=== PATIENT | female | born 1970 | race Caucasian/White ===

== ENCOUNTER 2016-12-08 08:01 | Emergency (ER) | payer SELFPAY ==
[2016-12-08 08:10] VITALS: BMI 35.2
--- NOTE | 2016-12-08 08:28 | EDPRACDOC ---
- General Information Chief Complaint: Flu-Like Symptoms Stated Complaint: CHEST PAIN/CONGESTION Information Source: Patient Home Medications: Home Medications Azithromycin 250 mg PO DAILY #6 tablet 12/08/16 Benzonatate [Tessalon Perle] 100 mg PO TID PRN #20 capsule 12/08/16 Allergies/Adverse Reactions: Allergies Allergy/AdvReac Type Severity Reaction Status Date / Time No Known Allergies Allergy Verified 12/08/16 08:23 - History of Present Illness Onset: 1 month HPI: C/o productive cough (green), chest congestion, body aches, green d/c from nose and eyes, facial pressure, fever up to 101, x 1 month. Denies cp, N/V/D, changes in urine or BM. Med hx = heart murmur (unknown type). Surgical hx = abhishek, breast reduction. Shortness of Breath: None Cough: Reports: Productive, Green Rhinorrhea: Reports: Green Fever Severity/Quality: Reports: greater than 100.5 F Ear Symptoms: Reports: None Associated Signs & Symptoms: Reports: Cough, Headache Oral Intake: Normal Urinary Output: Normal - Treatment Prior to ED Arrival Reported Medications/Treatment TECHNICAL DELIVERY MANAGER Medications TECHNICAL DELIVERY MANAGER (Medication/ Mucinex 0500 Dose/Time) ED Past Medical History - History Reviewed Yes Nurses notes reviewed and agree except as marked - Patient Medical History Psychological History: Denies: Depression Systemic History: Denies: Cancer Surgical History: Reports: Cholecystectomy - Social Medical History Smoking Status: Never smoker EDM Review of Systems - Review of Systems ROS Negative Except as Marked: Yes All systems reviewed and were negative except as marked Constitutional: Fever Nose: Congestion, Discharge Respiratory: Cough, Sputum Neurological: Headache Musculoskeletal: Other (body aches) - Physical Exam Constitutional: Alert Oriented to: Time, Person, Place Last recorded Vital Signs: Last Vital Signs Temp 98.8 F 12/08/16 08:06 Pulse 84 12/08/16 08:06 Resp 18 12/08/16 08:06 BP 159/79 12/08/16 08:06 Pulse Ox 97 12/08/16 08:06 Oxygen Pulse Oxygen Saturation 97 O2 Device Room Air Oxygen Flow Rate Fraction of Inspired Oxygen ( FIO2) - HEENT Head: Normal Eye Exam: Normal Oropharynx: Red Tympanic Membrane: Normal ENT EAC: Normal TMJ: Normal Nose: Congestion Neck: Normal - Respiratory/Cardiovascular Respiratory: Wheezes (mild) Cardiovascular: Normal - GI Tenderness: Non tender - Musculoskeletal Back: Normal Extremities: Normal - Integumentary Skin: Normal - Neurologic Mood Description: Normal Thought: Coherent Perception: Normal - Results 12/08/16 08:48 12/08/16 08:48 - Diagnostic Imaging Chest Image interpreted by: Radiologist EXAM: CHEST 2 VIEW COMPARISON: None. FINDINGS: The heart size and mediastinal contours are within normal limits. Both lungs are clear. The visualized skeletal structures are unremarkable. IMPRESSION: No active cardiopulmonary disease. Electronically Signed By: Osman Lopez M.D. On: 12/08/2016 09:12 Decision Time to Discharge: 09:18 - Departure Disposition: Home Condition: Stable Final Diagnosis: Flu-like symptoms Sinusitis Qualifiers: Sinusitis location: unspecified location Chronicity: chronic Qualified Code(s) : J32.9 - Chronic sinusitis, unspecified Instructions: Viral Syndrome Education/Counseling Given To: Patient Education/Counseling Given Regarding: Diagnosis, Treatment, Prognosis, Follow Up Referrals: Armando Trevino MD [Staff Physician] - One Week Prescriptions: New Azithromycin 250 mg PO DAILY #6 tablet Benzonatate [Tessalon Perle] 100 mg PO TID PRN #20 capsule PRN Reason: Cough Additional Instructions: Follow up with primary care. Return to ED for any new or worsening symptoms.
[2016-12-08] MEDS ORDERED: ACETAMINOPHEN 325 MG/TAB TABLET PO ONE (08:38)
[2016-12-08 08:55] LABS: AUTOMATED BASOPHIL 0.2 % (0-2); AUTOMATED EOSINOPHIL 0.2 % (0-5); AUTOMATED LYMPH 8.4 % (17-44); AUTOMATED MONOCYTE 4.1 % (3-10); AUTOMATED NEUTROPHIL 87.1 % (45-76); MPV 8.3 fL (7.4-10.4)
[2016-12-08 09:00] LABS: LEUKOCYTES/URINE TRACE (NEGATIVE); NITRITE/URINE NEG (NEGATIVE); RBC/URINE 0-2 (0-5); URINE OCCULT BLOOD 2+ (NEG/TRACE)
--- NOTE | 2016-12-08 09:14 | DIRPT ---
CLINICAL DATA: Shortness of breath for 1 month EXAM: CHEST 2 VIEW COMPARISON: None. FINDINGS: The heart size and mediastinal contours are within normal limits. Both lungs are clear. The visualized skeletal structures are unremarkable. IMPRESSION: No active cardiopulmonary disease. Electronically Signed By: Osman Lopez M.D. On: 12/08/2016 09:12
[2016-12-08 09:16] LABS: BLOOD UREA NITROGEN 5 MG/DL (7-17); CALC CORRECTED 9.6 MG/DL (8.4-10.2); CALCIUM 9.3 MG/DL (8.4-10.2); CALCULATED OSMOLALITY 263 MOs/Kg (270-290); CHLORIDE 102 mEq/L (98-107); GLUCOSE 105 MG/DL (70-99); SODIUM LEVEL 138 mEq/L (137-146)
[2016-12-08 09:44] VITALS: BP 120/64; PULSE 72; TEMP 98.4
== END 2016-12-08 09:42 | disposition home or self-care (01) ==
LOC: ED 08:01
DX: J32.9 Chronic sinusitis, unspecified (principal); J11.1 Influenza due to unidentified influenza virus with other respiratory manifestations
CPT/HCPCS: 36415; 71020; 80053; 81001; 85025; 99283; J3490

== ENCOUNTER 2016-12-14 14:39 | Emergency (ER) | payer SELFPAY ==
[2016-12-14 14:46] VITALS: BP 177/83; PULSE 88; TEMP 98.1; BMI 35.5
[2016-12-14 15:10] LABS: LEUKOCYTES/URINE 2+ (NEGATIVE); RBC/URINE 0-2 (0-5); URINE OCCULT BLOOD NEG (NEG/TRACE); WBC/URINE TNTC (0-5)
[2016-12-14 15:11] LABS: NITRITE/URINE NEG (NEGATIVE)
--- NOTE | 2016-12-14 15:20 | EDPRACDOC ---
- General Information Chief Complaint: Flu-Like Symptoms Stated Complaint: COUGHING HOARSNESS EAR PAIN ? URINARY INFECTION Time Seen by Provider: 12/14/16 14:54 Information Source: Patient Home Medications: Home Medications Azithromycin 250 mg PO DAILY #6 tablet 12/08/16 Benzonatate [Tessalon Perle] 100 mg PO TID PRN #20 capsule 12/08/16 Acetaminophen with Codeine [TYLENOL WITH CODEINE; [employer] with Codeine] 5 ml PO Q4-6H PRN #120 ml 12/14/16 Amoxicillin Trihydrate [Amoxicillin] 500 mg PO TID #30 tab 12/14/16 Benzonatate [Tessalon] 100 mg PO TID #20 per 12/14/16 Prednisone [Deltasone, Orasone] 2 tabs PO DAILY #20 tab 12/14/16 Allergies/Adverse Reactions: Allergies Allergy/AdvReac Type Severity Reaction Status Date / Time No Known Allergies Allergy Verified 12/14/16 14:46 - History of Present Illness Onset: 1 WEEK HPI: PT PRESENTS TODAY WITH COUGH/CONGESTION, SINUS PRESSURE AND DYSURIA X 1 WEEK. PT WAS SEEN HERE LAST WEEK AND GIVEN ZITHROMAX/PEARLS W/OUT RELIEF. DENIES MENDIETA , FEVER, CP, SHOB, ABD PAIN, N/V/D. NO OTHER PMH/MEDS/SBI. NO APPARENT DISTRESS. Current Symptoms: Reports: Cough, Earache, Nasal Symptoms, Sore Throat Shortness of Breath: None Cough: Reports: Non-productive Rhinorrhea: Reports: None Ear Symptoms: Reports: Earache Fever Severity/Quality: Reports: no fever Oral Intake: Normal Urinary Output: Normal Relevant History of: None Associated Signs & Symptoms:: Reports: Cough, Earache, Nasal Symptoms ED Past Medical History - History Reviewed Yes Nurses notes reviewed and agree except as marked - Patient Medical History Psychological History: Denies: Depression Systemic History: Denies: Cancer Surgical History: Reports: Cholecystectomy. Denies: Hysterectomy - Social Medical History Smoking Status: Never smoker EDM Review of Systems - Review of Systems ROS Negative Except as Marked: Yes All systems reviewed and were negative except as marked Constitutional: No Symptoms Reported Eyes: No Symptoms Reported Ears: Pain Throat: Pain Nose: Congestion Respiratory: Cough Cardiovascular: No Symptoms Reported Gastrointestinal: No Symptoms Reported Neurological: No Symptoms Reported Musculoskeletal: No Symptoms Reported Integumentary: No Symptoms Reported - Physical Exam Constitutional: Alert (Awake), No apparent distress Oriented to: Time, Person, Place Last recorded Vital Signs: Last Vital Signs Temp 98.1 F 12/14/16 14:43 Pulse 88 12/14/16 14:43 Resp 18 12/14/16 14:43 BP 177/83 12/14/16 14:43 Pulse Ox 95 12/14/16 14:43 Oxygen Pulse Oxygen Saturation 95 O2 Device Room Air Oxygen Flow Rate Fraction of Inspired Oxygen ( FIO2) - HEENT Head: Tender (BILATERAL MAXILLARY SINUSES) Eye Exam: Normal Oropharynx: Normal Tympanic Membrane: Normal ENT EAC: Normal Nose: Congestion Neck: Normal, Denies Pain, Midline - Respiratory/Cardiovascular Respiratory: Normal - CTA Cardiovascular: Normal - GI Palpation: Normal Tenderness: Non tender - Musculoskeletal Back: Normal Extremities: Normal - Integumentary Skin: Normal Lymphatics: Normal - Neurologic Cerebellar: Normal Mood Description: Normal Thought: Coherent Perception: Normal - Results Urine Color Cathy 12/14/16 14:45 Urine Clarity Cldy 12/14/16 14:45 Urine pH 6.0 (5.0-8.0) 12/14/16 14:45 Ur Specific [place] 1.015 (1.003-1.035) 12/14/16 14:45 Urine Protein Neg (NEG/TRACE) 12/14/16 14:45 Urine Glucose (UA) Neg (NEGATIVE) 12/14/16 14:45 Urine Ketones Neg (NEGATIVE) 12/14/16 14:45 Urine Occult Blood Neg (NEG/TRACE) 12/14/16 14:45 Urine Nitrite Neg (NEGATIVE) 12/14/16 14:45 Urine Bilirubin Neg (NEGATIVE) 12/14/16 14:45 Urine Urobilinogen 4 MG/DL (0-1) H 12/14/16 14:45 Ur Leukocyte Esterase 2+ (NEGATIVE) H 12/14/16 14:45 Urine RBC 0-2 (0-5) 12/14/16 14:45 Urine WBC Tntc (0-5) H 12/14/16 14:45 Ur Epithelial Cells Occ 12/14/16 14:45 Urine Bacteria Few (NEG/FEW) 12/14/16 14:45 Lab Results 12/14/16 14:45 Urine Color Cathy Urine Clarity Cldy Urine pH 6.0 Ur Specific [place] 1.015 Urine Protein Neg Urine Glucose (UA) Neg Urine Ketones Neg Urine Occult Blood Neg Urine Nitrite Neg Urine Bilirubin Neg Urine Urobilinogen 4 H Ur Leukocyte Esterase 2+ H Urine RBC 0-2 Urine WBC Tntc H Ur Epithelial Cells Occ Urine Bacteria Few Decision Time to Discharge: 15:17 - Departure Disposition: Home Condition: Good Final Diagnosis: Acute sinusitis Urinary tract infection Qualifiers: Urinary tract infection type: site unspecified Hematuria presence: without hematuria Qualified Code(s): N39.0 - Urinary tract infection, site not specified Instructions: Urinary Tract Infection in Women (ED), Dysuria Education/Counseling Given To: Patient Education/Counseling Given Regarding: Diagnosis, Treatment, Follow Up Referrals: None,No Provider [Primary Care Provider] - One Week [facility] [NonStaff] - One Week Prescriptions: New Acetaminophen with Codeine [TYLENOL WITH CODEINE; [employer] with Codeine] 5 ml PO Q4-6H PRN #120 ml PRN Reason: Pain Amoxicillin Trihydrate [Amoxicillin] 500 mg PO TID #30 tab Benzonatate [Tessalon] 100 mg PO TID #20 per Prednisone [Deltasone, Orasone] 2 tabs PO DAILY #20 tab No Action Azithromycin 250 mg PO DAILY #6 tablet Benzonatate [Tessalon Perle] 100 mg PO TID PRN #20 capsule PRN Reason: Cough Additional Instructions: AFRIN OTC FOR ADDITIONAL RELIEF. REST AND PLENTY OF FLUIDS. FOLLOW UP WITH PCP IN 2-3 DAYS IF NEEDED.
== END 2016-12-14 15:23 | disposition home or self-care (01) ==
LOC: EDMC 14:39
DX: J01.90 Acute sinusitis, unspecified (principal); N39.0 Urinary tract infection, site not specified
CPT/HCPCS: 81001; 87077; 87086; 87186; 99282